=== PATIENT | male | born 1970 | race Caucasian/White ===

== ENCOUNTER → 2016-02-13 | Day surgery (SDC) | payer BC ==
[2016-02-11 14:49] VITALS: Ht 182.9 cm; Wt 90.4 kg
--- NOTE | 2016-02-11 15:20 | PAT Medication Instructions ---
Service Date Feb 11, 2016. Current Home Medication List Ibuprofen (Advil), 400-600 MG PO PRN Multivitamin (Multivitamin), 1 TAB PO QPM Probiotic Product (Probiotic), 1 CAP PO QPM Tamsulosin Hcl (Flomax), 0.4 MG PO QPM Medication Instructions For Your Scheduled Surgery - Take the following medications as scheduled the night before surgery: Multivitamin (Multivitamin), 1 TAB PO QPM Probiotic Product (Probiotic), 1 CAP PO QPM Tamsulosin Hcl (Flomax), 0.4 MG PO QPM Nothing to eat or drink after midnight If you have any questions please call us at [phone] (Belem Nicole PA-C ) or [phone] or [phone]
[~2016-02-13] VITALS: Ht 182.9 cm; Wt 90.4 kg
[~2016-02-13] MED LIST: ATROPINE SULFATE 0.1 MG/ML 5ML SYR IV PRN; CEFAZOLIN 2000 MG/60 ML D5W IV SCH; DEXAMETHASONE SOD INJ 4 MG/ML VIAL ONE; EpHEDrine SULFATE INJ 50 MG/ML AMP IV PRN; FENTANYL CITRATE INJ 50 MCG/1 ML 2 ML VIAL IV PRN; FENTANYL CITRATE INJ 50 MCG/1 ML 2 ML VIAL ONE; IBUP-1050 PO; IBUP-1428 PO; LACTATED RINGER'S 1000ML 1,000 ML IV SCH; LIDOCAINE HCL 2% 2 ML VIAL (20MG/ML) ONE; MELO7.5T5 PO; MIDAZOLAM HCL 1 MG/ML 2ML VIAL ONE; MISCCAP80 PO; MULT-506 PO; ONDANSETRON INJ 2 MG/ML 2 ML VIAL IV PRN; ONDANSETRON INJ 2 MG/ML 2 ML VIAL ONE; OXYC7.5T65 PO; OXYCODONE HCL SOLN 5 MG/5 ML UDC PO PRN; PHEN-775 PO; PROPOFOL IV EMULSION 10 MG/ML 20 ML VIAL IV ONE; SUCCINYLCHOLINE CHLORIDE 20 MG/ML 10 ML VIAL IV ONE; SULF800T23 PO; TAMS0.4C38 PO
--- NOTE | 2016-02-13 08:52 | History & Physical Bridge - [place] ---
H&P Re-Evaluation Bridge Note: I have examined the patient, reviewed the History & Physical and in the interval since the performance of the History & Physical I have noted the following changes of clinical significance: No changes noted
--- NOTE | 2016-02-13 09:47 | [facility] Operative Report ---
Operative Report Operative Date Feb 13, 2016. Pre-Operative Diagnosis Squamous Papilloma of the Uvula Post-Operative Diagnosis Same Procedure(s) Performed Uvulectomy Surgeon Dr. Blackwell Soap Maker Surgeon(s) None Findings 1. LIKELY SQUAMOUS PAPILLOMA OF THE RIGHT SIDE OF THE UVULA Specimens A. Uvula I attest to the content of the Intraoperative Record and any orders documented therein. Any exceptions are noted below.
--- NOTE | 2016-02-13 09:49 | Discharge Instructions ---
Discharge Instructions Admission Reason for Admission: Squamous Papilloma Of The Uvula Discharge Discharge Diagnosis / Problem: SAME Discharge Goals Goal(s): Improve function Activity Recommendations Activity Limitations: as noted below 1. LIGHT ACTIVITY FOR 48HRS 2. AVOID VERY HOT LIQUID/FOOD FOR 1WEEK 3. NO DRIVING WHILE ON OXYCODONE . Current Hospital Diet Patient's current hospital diet: Regular Diet Discharge Diet Recommended Diet: Regular Diet Procedures Procedures Performed: Uvulectomy Pending Studies Studies pending at discharge: no Medical Emergencies . Who to Call and When: Medical Emergencies: If at any time you feel your situation is an emergency, please call 911 immediately. . Non-Emergent Contact Non-Emergency issues call your: Surgeon . . "Provider Documentation" section prepared by Qasim Blackwell. VTE Core Measure Inpt VTE Proph given/why not?: SCD's
--- NOTE | 2016-02-13 10:21 | OPERATIVE REPORT ---
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 PROCEDURE: Uvulectomy. SURGEON: Dr. Blackwell. ANESTHESIA: General endotracheal. ESTIMATED BLOOD LOSS: 1 mL. FINDINGS: About 7 mm papillomatous lesion involving the right aspect of the uvula. SPECIMEN: Uvula. COMPLICATIONS: None. INDICATIONS FOR THE PROCEDURE: The patient is a pleasant 45-year-old male who is referred for evaluation of a lesion involving his uvula. Clinically, it appears to be a squamous papilloma which is approximately 7 mm in size and bilobed in its appearance. Options including observation versus excision of the papilloma versus uvulectomy were discussed with the patient and he opted for uvulectomy. He presents for the above-mentioned procedure on an outpatient elective basis. OPERATION AND FINDINGS: DETAILS OF THE PROCEDURE: After informed consent had been obtained from the patient, the patient was wheeled to the operating room and placed on the operating table in supine position. Monitors were placed after induction of general endotracheal anesthesia. The table was turned 90 degrees and the patient's head and neck were gently extended. Antibiotic ointment was applied to the lips and a mouth gag was carefully inserted, opened, and stabilized on a roll of towels. Using Bovie on cut mode the mucosal incision was made over the uvula and using coagulation mode the musculature of the uvula was divided. The posterior mucosal cut was made on cut mode. The uvulectomy specimen was sent off for permanent pathological assessment. Intraoperative findings were about 7 mm bilobed papillomatous lesion involving the right aspect of the uvula. Bovie electrocautery was used to achieve adequate hemostasis. Three simple interrupted 2-0 Vicryl sutures were then placed to suture the mucosal edges of the uvulectomy site together. No orogastric tube was placed and the stomach was suctioned free of air and stomach contents. This marked the end of the case. The patient tolerated the procedure well and there were no apparent complications. The patient was extubated and transferred to the recovery room in stable condition. I attest to the content of the Intraoperative Record and any orders documented therein. Any exceptio ns are noted below.
--- NOTE | 2016-02-13 10:30 | Anesthesia Progress Nt - [facility] ---
Anesthesia Post Op Note Date & Time Feb 13, 2016 at 10:30 Vital Signs Pain Intensity: 2 Vital Signs Past 12 Hours Date Time Temp Pulse Resp B/P Pulse Ox O2 Delivery O2 Flow Rate FiO2 02/13/16 09:57 36.3 79 14 123/83 96 Humidified Oxygen 6 Mask 02/13/16 09:15 36.4 74 18 127/86 99 Room Air Notes Mental Status: alert / awake / arousable, participated in evaluation Pt Amnestic to Procedure: Yes Nausea / Vomiting: adequately controlled Pain: adequately controlled Airway Patency, RR, SpO2: stable & adequate BP & HR: stable & adequate Hydration State: stable & adequate Anesthetic Complications: no major complications apparent
[2016-02-13 10:44] VITALS: TEMP 36.4
[2016-02-13 11:09] VITALS: BP 123/82; PULSE 70; O2SAT 98
== END | disposition home or self-care (01) ==
LOC: X.SURG 09:03
DX: D10.39 Benign neoplasm of other parts of mouth (principal); Z86.69 Personal history of other diseases of the nervous system and sense organs; Z78.9 Other specified health status; Z98.890 Other specified postprocedural states; Z83.3 Family history of diabetes mellitus

== ENCOUNTER 2016-04-01 11:04 | Day surgery (SDC) | payer BC ==
[2016-03-18 10:49] VITALS: BMI 25.0
[~2016-04-01] VITALS: Ht 182.9 cm; Wt 84.0 kg
[~2016-04-01 11:04] MED LIST changes: -ATROPINE SULFATE 0.1 MG/ML 5ML SYR IV PRN; -CEFAZOLIN 2000 MG/60 ML D5W IV SCH; +CIPROFLOXACIN / D5W 400 MG IV SCH; -DEXAMETHASONE SOD INJ 4 MG/ML VIAL ONE; -EpHEDrine SULFATE INJ 50 MG/ML AMP IV PRN; -FENTANYL CITRATE INJ 50 MCG/1 ML 2 ML VIAL IV PRN; -FENTANYL CITRATE INJ 50 MCG/1 ML 2 ML VIAL ONE; -IBUP-1050 PO; -IBUP-1428 PO; -LIDOCAINE HCL 2% 2 ML VIAL (20MG/ML) ONE; -MELO7.5T5 PO; -MIDAZOLAM HCL 1 MG/ML 2ML VIAL ONE; -ONDANSETRON INJ 2 MG/ML 2 ML VIAL IV PRN; -ONDANSETRON INJ 2 MG/ML 2 ML VIAL ONE; -OXYC7.5T65 PO; -OXYCODONE HCL SOLN 5 MG/5 ML UDC PO PRN; -PHEN-775 PO; -PROPOFOL IV EMULSION 10 MG/ML 20 ML VIAL IV ONE; -SUCCINYLCHOLINE CHLORIDE 20 MG/ML 10 ML VIAL IV ONE; -SULF800T23 PO
[2016-04-01 11:16] VITALS: BP 144/80; PULSE 78; TEMP 36.8; O2SAT 98; Ht 182.9 cm; Wt 84.0 kg
[2016-04-01] MEDS ORDERED: ONDANSETRON INJ 2 MG/ML 2 ML VIAL ONE (13:41)
[2016-04-01] MEDS ORDERED: PROPOFOL IV EMULSION 10 MG/ML 20 ML VIAL IV ONE ×2 (13:41→14:16)
[2016-04-01] MEDS ORDERED: LIDOCAINE HCL 2% 2 ML VIAL (20MG/ML) ONE (13:41)
[2016-04-01] MEDS ORDERED: FENTANYL CITRATE INJ 50 MCG/1 ML 2 ML VIAL ONE (13:41)
[2016-04-01] MEDS ORDERED: MIDAZOLAM HCL 1 MG/ML 2ML VIAL ONE ×2 (13:41→14:09)
[2016-04-01] MEDS ORDERED: BELLADONNA/OPIUM SUPP 60 MG SUPP PR ONE (14:26)
[2016-04-01] MEDS ORDERED: SULF800T23 PO (14:44)
[2016-04-01] MEDS ORDERED: PHEN-775 PO (14:44)
[2016-04-01] MEDS ORDERED: OXYC7.5T65 PO (14:44)
[2016-04-01] MEDS ORDERED: FLUMAZENIL 0.1 MG/1 ML 10 ML VIAL IV PRN (14:45)
[2016-04-01] MEDS ORDERED: PROMETHAZINE HCL INJ 12.5 MG in SODIUM CHLORIDE 0.9% 50ML 50 ML IV PRN (14:45)
[2016-04-01] MEDS ORDERED: NALOXONE HCL 0.4 MG/1 ML VIAL/CARP IV PRN (14:45)
[2016-04-01] MEDS ORDERED: LABETALOL HCL IV 5 MG/ML 20ML IV PRN (14:45)
[2016-04-01] MEDS ORDERED: EpHEDrine SULFATE INJ 50 MG/ML AMP IV PRN (14:45)
[2016-04-01] MEDS ORDERED: ONDANSETRON INJ 2 MG/ML 2 ML VIAL IV PRN (14:45)
[2016-04-01] MEDS ORDERED: ATROPINE SULFATE 0.1 MG/ML 5ML SYR IV PRN (14:45)
[2016-04-01] MEDS ORDERED: FENTANYL CITRATE INJ 50 MCG/1 ML 2 ML VIAL IV PRN (14:45)
--- NOTE | 2016-04-01 14:47 | Discharge Instructions ---
Discharge Instructions Admission Reason for Admission: Urethral Stricture Discharge Discharge Diagnosis / Problem: Urethral stricture s/p OIU Discharge Goals Goal(s): Decrease discomfort, Improve function, Improve disease control, Therapeutic intervention Activity Recommendations Activity Limitations: resume your previous activity Lifting Limitations: gradually increase as tolerated Exercise/Sports Limitations: gradually increase as tolerated May Resume Sexual Activity: after one week Shower/Bathe: tomorrow (may shower, no bath with bhatia in place) . Instructions / Follow-Up Instructions / Follow-Up Outpatient appointments for catheter removal and follow-up as planned Discharge Diet Recommended Diet: Regular Diet (good fluid intake) Procedures Procedures Performed: OIU Pending Studies Studies pending at discharge: no Medical Emergencies . Who to Call and When: Medical Emergencies: If at any time you feel your situation is an emergency, please call 911 immediately. . Non-Emergent Contact Non-Emergency issues call your: Urologist Call Non-Emergent contact if: you have a fever, temperature is above 101, your pain is not controlled, your pain is worsening, your pain is unusual for you, you have any medication questions . . "Provider Documentation" section prepared by Armando Real. VTE Core Measure Inpt VTE Proph given/why not?: SCD's [place] Drug Monitoring Program Search Results: patient reviewed within database, see additional documentation (recent Rx in Feb 2016 for oxycodone - Rx provided for postop analgesia)
[2016-04-01] MEDS ORDERED: OXYCODONE/ACETAMINOPHEN 5-325 TAB PO PRN (15:00)
[2016-04-01] MEDS ORDERED: PHENAZOPYRIDINE HCL 200 MG TAB PO PRN (15:00)
--- NOTE | 2016-04-01 15:02 | [facility] Post Operative Brief Note ---
Immediate Operative Summary Operative Date Apr 01, 2016. Pre-Operative Diagnosis Bulbar Urethral Stricture Post-Operative Diagnosis Bulbar Urethral Stricture Procedure(s) Performed Optical Internal Urethrotomy, Cystoscopy Surgeon Dr. Real Forest And Conservation Worker Surgeon(s) none Estimated Blood Loss 0 ml Findings Open stricture, no worrisome findings in the bladder Specimens none per surgeon Drains 18 fr silicone, 10 cc H2O Anesthesia MAC Complication(s) None Disposition Recovery Room / PACU
--- NOTE | 2016-04-01 15:22 | OPERATIVE REPORT ---
DATE OF OPERATION: 04/01/2016 PREOPERATIVE DIAGNOSIS: Bulbar urethral stricture. POSTOPERATIVE DIAGNOSIS: Same. PROCEDURE: Cystoscopy and optical internal urethrotomy. SURGEON: Dr. Armando Real. CHOIR SINGER: None. ANESTHESIA: Monitored anesthesia care with sedation. COMPLICATIONS: None. ESTIMATED BLOOD LOSS: Minimal. SPECIMENS SENT TO PATHOLOGY: None. DRAINS LEFT IN PLACE: Include an 18 Burmese silicone catheter to gravity drainage with 10 mL of sterile water in the balloon. FINDINGS: Bulbar urethral stricture opened, normal cystoscopy was grade 1-2 trabeculation and a mildly obstructive prostate with a muscular bladder neck. BRIEF HISTORY: Mr. Ray is a 45-year-old male with a history of voiding bother and urethral stricture as noted on outpatient cystoscopy. He has monitored his condition for some time, but his family decided upon an internal urethrotomy to manage his disease. Please see H\T\P for further details. Intravenous ciprofloxacin is provided for antibiotic coverage. SCDs for DVT prophylaxis. DESCRIPTION OF PROCEDURE: The patient was properly identified and brought to the operative suite after identification of appropriate consent on the chart. Monitored anesthesia care with sedation was initiated. The patient was prepped and draped in a standard fashion for this procedure. multimedia producer-out procedure was followed. Urethrotome resectoscope was introduced into the bladder under direct visualization down to the level of the stricture in the bulbar urethra. A working element was introduced and the stricture was incised at 12 o'clock position with good improvement of the urethral lumen. The scope was advanced into the bladder. Minimal lateral lobe hypertrophy with an elevated muscular bladder neck was appreciated. Bladder was surveyed in its entirety demonstrating normal ureteral orifices in the normal anatomic location and effluxing clear, yellow urine. Grade 1-2 trabeculation was present. There were no intravesical masses, papillary lesions or calculi. Exit cystoscopy ensured that the area of stricture was wide open. The resectoscope was removed. An 18-Burmese silicone catheter was placed without difficulties with return of clear, yellow urine. 10 mL of sterile water were placed within the balloon. Anesthesia was reversed. The patient was transferred to recovery room in stable condition. FOLLOWUP CARE: The patient will be discharged home with a prescription for Percocet, Pyridium and ciprofloxacin. Outpatient trial of void and postoperative appointment are scheduled. The patient is instructed to contact our service should he note any fevers, chills, nausea, vomiting or other significant difficulties in the postoperative period. I attest to the content of the Intraoperative Record and any orders documented therein. Any exceptio ns are noted below.
--- NOTE | 2016-04-01 15:28 | Anesthesiology Progress Note ---
Anesthesia Post Op Note Date & Time Apr 01, 2016 at 15:29 Vital Signs Pain Intensity: 0 Vital Signs Past 12 Hours Date Time Temp Pulse Resp B/P Pulse Ox O2 Delivery O2 Flow Rate FiO2 04/01/16 15:20 63 16 116/69 96 Room Air 04/01/16 15:10 61 16 117/71 95 Room Air 04/01/16 15:00 56 16 116/72 95 Mask 12 04/01/16 14:50 57 12 114/72 98 Mask 12 04/01/16 14:41 37.4 68 12 120/62 98 Mask 12 04/01/16 11:16 36.8 78 18 144/80 98 Notes Mental Status: alert / awake / arousable, participated in evaluation Pt Amnestic to Procedure: Yes Nausea / Vomiting: adequately controlled Pain: adequately controlled Airway Patency, RR, SpO2: stable & adequate BP & HR: stable & adequate Hydration State: stable & adequate Anesthetic Complications: no major complications apparent
[2016-04-01 15:35] VITALS: BP 113/65; PULSE 68; TEMP 36.6; O2SAT 95
[2016-04-01 16:01] VITALS: BP 111/70; PULSE 64; O2SAT 97
[2016-04-01 16:42] VITALS: BP 115/72; PULSE 64; TEMP 36.3; O2SAT 97
[2016-06-30] MEDS ORDERED: IBUP-1428 PO (10:44)
[2016-08-05] MEDS ORDERED: MELO7.5T5 PO (10:32)
== END 2016-04-01 16:31 | disposition home or self-care (01) ==
LOC: C.ACU 11:04
PROVIDERS: ATTEND Urology
DX: N35.9 Urethral stricture, unspecified (principal); N41.0 Acute prostatitis; R39.15 Urgency of urination; R39.12 Poor urinary stream

== ENCOUNTER → 2017-08-31 | Outpatient (CLI) | payer BC ==
[~2017-08-31] MED LIST changes: -CIPROFLOXACIN / D5W 400 MG IV SCH; -LACTATED RINGER'S 1000ML 1,000 ML IV SCH; +MELO7.5T5 PO; -MISCCAP80 PO; -TAMS0.4C38 PO
--- NOTE | 2017-08-31 15:54 | DIAGNOSTIC IMAGING REPORT ---
CHEST 2 VIEWS ROUTINE CLINICAL HISTORY: R09.89 Chest [id number] COMPARISON STUDY: 09/05/2009 FINDINGS: The cardiac and mediastinal contours are normal. There is no evidence of focal pulmonary consolidation. There is no evidence of failure. No pleural effusions are visualized.[ A subtle right infrahilar opacity was present on the prior study and likely represents a vascular confluence. IMPRESSION: No active disease in the chest. Electronically signed by: Anjel Victoria M.D. 08/31/2017 3:53 PM Dictated Date/Time: 08/31/2017 3:52 PM
== END | disposition home or self-care (01) ==
LOC: C.RAD1850 15:39
PROVIDERS: ATTEND Nurse Practitioner Family
DX: R09.89 Other specified symptoms and signs involving the circulatory and respiratory systems (principal)

== ENCOUNTER → 2017-09-20 | Outpatient (CLI) | payer BC ==
[2017-09-20 12:15] LABS: BASO % 0.8 %; BASO ABS # 0.06 K/uL (0-0.2); EOS % 4.2 %; EOS ABS # 0.33 K/uL (0-0.5); HEMOGLOBIN 15.8 g/dL (14.0-18.0); IG# 0.02 K/uL (0.00-0.02); LYMPH % 22.1 %; LYMPH ABS # 1.73 K/uL (1.2-3.4); MEAN CELL VOLUME 93.4 fL (80-100); MEAN CORPUSCULAR HEMOGLOBIN 32.8 pg (25-34); MEAN CORPUSCULAR HGB CONC 35.1 g/dl (32-36); MEAN PLATELET VOLUME 9.8 fL (7.4-10.4); MONO ABS # 0.47 K/uL (0.11-0.59); NEUT % 66.6 %; NEUT ABS # 5.21 K/uL (1.4-6.5); PLATELET COUNT 291 K/uL (130-400); RED CELL DISTRIBUTION WIDTH CV 12.8 % (11.5-14.5); RED CELL DISTRIBUTION WIDTH SD 43.8 fL (36.4-46.3); WHITE BLOOD COUNT 7.82 K/uL (4.8-10.8)
[2017-09-20 12:31] LABS: BLOOD UREA NITROGEN 19 mg/dl (7-18); CALCIUM 9.2 mg/dl (8.5-10.1); CARBON DIOXIDE 23 mmol/L (21-32); CREATININE 0.96 mg/dl (0.60-1.40); GLUCOSE 108 mg/dl (70-99); POTASSIUM 4.1 mmol/L (3.5-5.1); SODIUM 138 mmol/L (136-145)
== END | disposition home or self-care (01) ==
LOC: C.LAB1850 11:12
PROVIDERS: ATTEND Nurse Practitioner Family
DX: R05 Cough (principal); M79.1 Myalgia